=== PATIENT | female | born 1950 | race Caucasian/White ===

== ENCOUNTER 2022-08-11 06:54 | Day surgery (SDC) | payer MEDICARE, SELFPAY ==
[2022-07-16 09:16] VITALS: BMI 38.7
--- NOTE | 2022-08-08 09:05 | MHC.SHP ---
Pre-Procedural Eval Section A Date of Service: 08/08/22 The patient is an INPATIENT: No Changes since office visit: No Cold of Flu in the past 2 weeks, No New Medical Problems, No Changes in Medication and No Patient answered all questions The History & Physical has been completed within 30 days and I have reviewed it.: Yes Section B Chief Complaint: cataract Allergies: Allergies Allergy/AdvReac Type Severity Reaction Status Date / Time methotrexate AdvReac elevated Verified 07/16/22 09:09 LFT Sulfa (Sulfonamide AdvReac elevated Verified 07/16/22 09:09 Antibiotics) LFT Plan Diagnosis/Plan: Unchanged I have reviewed the history and physical and performed a pertinent physical examination on my patient. No changes have occurred unless specified.
--- NOTE | 2022-08-08 09:47 | P.CONAN_ITS ---
Documented by User: Renata Gibson NP 08/08/22 09:48 HPI - Anesthesia Eval Consult details Narrative: 72yo F for Right Cataract Extraction IOL Insertion PCP cleared No previous cataract on record [facility] Past Medical History Medical History (Updated 08/05/22 @ 16:15 by Zainab Calhoun, RN) Anemia Arthritis Bilateral cataracts Cardiomyopathy CKD (chronic kidney disease) Fatty liver GERD (gastroesophageal reflux disease) History of palpitations HTN (hypertension) Hx of atrial flutter Hx of cholelithiasis Hypercholesteremia Hypothyroid LBBB (left bundle branch block) Osteoarthritis Personal history of COVID-19 Rheumatoid arthritis Varicose vein of leg Surgical History Surgical History (Updated 08/05/22 @ 16:16 by Zainab Calhoun, CHAVO) History of ankle surgery History of liver biopsy Hx of colonoscopy Hx of dilation and curettage Hx of tonsillectomy Social History Social History Are you a primary interior plant caretaker to a significant other at home: No Do you presently have visiting nurse or other home services: No Patient Tobacco Use Status: Former Tobacco user Quit Date: 1989 Tobacco use type: Cigarette Use of substances other than those prescribed or required for medical reasons: No Have you been hit, kicked, punched, or otherwise hurt by someone within the past year? If so, by whom?: No Are you DNR?: No Advance Directives: No Advance Directives Information Provided: Yes Advance Directives on File: No Recently lost weight without trying: No Meds Allergies Allergy/AdvReac Type Severity Reaction Status Date / Time methotrexate AdvReac elevated Verified 07/16/22 09:09 LFT Sulfa (Sulfonamide AdvReac elevated Verified 07/16/22 09:09 Antibiotics) LFT Home Medications Medication Instructions Recorded Confirmed Last Taken Type Enbrel QWEEK 07/16/22 Unknown History cholecalciferol (vitamin D3) 25 25 mcg PO DAILY 07/16/22 07/16/22 Unknown History mcg (1,000 unit) capsule (Vitamin D3) famotidine 20 mg tablet 1 tab PO BID 07/16/22 07/16/22 08/11/22 History levothyroxine 137 mcg tablet 1 tab PO DAILY 07/16/22 07/16/22 08/11/22 History lisinopril 5 mg tablet 1 tab PO DAILY 07/16/22 07/16/22 Unknown History magnesium 250 mg tablet 250 mg PO Q OTHER DAY 07/16/22 07/16/22 Unknown History metoprolol succinate 50 mg 1 tab PO DAILY 07/16/22 07/16/22 Unknown History tablet,extended release 24 hr multivitamin 1 tab PO DAILY 07/16/22 07/16/22 Unknown History vitamin B complex 1 tab PO DAILY 07/16/22 07/16/22 Unknown History Exam Exam Date and Time: August 08, 2022 0947 Height,Weight and Vital Signs: Height 5 ft 6 in Weight 108.862 kg Assessment and Plan Assessment Anesthesia Assessment: Chart Reviewed Documented by User: Yaa Lau MD 08/11/22 08:02 [facility] Past Medical History Medical History (Updated 08/05/22 @ 16:15 by Zainab Calhoun, CHAVO) Anemia Arthritis Bilateral cataracts Cardiomyopathy CKD (chronic kidney disease) Fatty liver GERD (gastroesophageal reflux disease) History of palpitations HTN (hypertension) Hx of atrial flutter Hx of cholelithiasis Hypercholesteremia Hypothyroid LBBB (left bundle branch block) Osteoarthritis Personal history of COVID-19 Rheumatoid arthritis Varicose vein of leg Family History Family history of problems with anesthesia: No Surgical History Surgical History (Updated 08/05/22 @ 16:16 by Zainab Calhoun RN) History of ankle surgery History of liver biopsy Hx of colonoscopy Hx of dilation and curettage Hx of tonsillectomy History of Problems with Anesthesia: No Social History Social History Are you a primary interior plant caretaker to a significant other at home: No Do you presently have visiting nurse or other home services: No Patient Tobacco Use Status: Former Tobacco user Quit Date: 1989 Tobacco use type: Cigarette Use of substances other than those prescribed or required for medical reasons: No Have you been hit, kicked, punched, or otherwise hurt by someone within the past year? If so, by whom?: No Are you DNR?: No Advance Directives: No Advance Directives Information Provided: Yes Advance Directives on File: No Recently lost weight without trying: No Meds Allergies Allergy/AdvReac Type Severity Reaction Status Date / Time methotrexate AdvReac elevated Verified 07/16/22 09:09 LFT Sulfa (Sulfonamide AdvReac elevated Verified 07/16/22 09:09 Antibiotics) LFT Home Medications Medication Instructions Recorded Confirmed Last Taken Type Enbrel QWEEK 07/16/22 Unknown History cholecalciferol (vitamin D3) 25 25 mcg PO DAILY 07/16/22 07/16/22 Unknown History mcg (1,000 unit) capsule (Vitamin D3) famotidine 20 mg tablet 1 tab PO BID 07/16/22 07/16/22 08/11/22 History levothyroxine 137 mcg tablet 1 tab PO DAILY 07/16/22 07/16/22 08/11/22 History lisinopril 5 mg tablet 1 tab PO DAILY 07/16/22 07/16/22 Unknown History magnesium 250 mg tablet 250 mg PO Q OTHER DAY 07/16/22 07/16/22 Unknown History metoprolol succinate 50 mg 1 tab PO DAILY 07/16/22 07/16/22 Unknown History tablet,extended release 24 hr multivitamin 1 tab PO DAILY 07/16/22 07/16/22 Unknown History vitamin B complex 1 tab PO DAILY 07/16/22 07/16/22 Unknown History Exam Height,Weight and Vital Signs: Height 5 ft 6 in Weight 108.862 kg Vital Signs Temp Pulse Resp BP Pulse Ox O2 Del Method 08/11/22 07:36 96.9 F 62 18 169/50 H 98 Room Air Airway Mallampati Class: II TM Dist: >3cm Neck ROM: Full Loose/Missing/Broken Teeth: Yes (Some missing-extractions) Heart: RRR Lungs: CTAB Assessment and Plan Assessment Anesthesia Assessment: Anesthesia Plan Discussed Final Anesthetic Review Family History of Problems with Anesthesia: No History of Problems with Anesthesia: No NPO: Yes ASA Class: III Final Preanesthetic Review: No Changes in Pt Med Stat, Meds/Allgs Chart Reviewed, Consent Obtained/Reviewed and Anes Risks/Benef Reviewed Patient Risk: Intermediate Procedure Risk: Low Assessment/Block/Sedation in SS: Assess/Block/Sedation-SS Anesthetic Plan Anesthetic Plan: MAC: Disposition: Standard PACU
[2022-08-11 07:36] VITALS: BP 169/50; PULSE 62; RESP 18; TEMP 36.1; O2SAT 98
[2022-08-11] MEDS: Tetracaine HCl/PF 0.5% Oph Sol 4 ML DROPS 1 DROP EYE-RIGHT (07:50)
[2022-08-11] MEDS: Tropicamide 1 % Ophth Sol 3 ML BTL 1 DROP EYE-RIGHT ×3 (07:50→07:52)
[2022-08-11] MEDS: Cyclopentolate 1 % Ophth Sol 2 ML DRPBTL 1 DROP EYE-RIGHT ×3 (07:50→07:52)
[2022-08-11] MEDS: Lactated Ringers 500 ML 50 ML IV (07:50)
[2022-08-11] MEDS: Phenylephrine HCL 2.5% Oph SoL 2 ML BOTTLE 1 DROP EYE-RIGHT ×3 (07:51→07:52)
--- NOTE | 2022-08-11 08:44 | HO.PNOPHT ---
Ophthalmology Procedure Procedure Date of Service: 08/11/22 Ophthalmology Viscoelastic: Nika Saunderst Dual Pack Pro Ophthalmology Lenses: TECAUSTEN [id number] (22) Procedure Notes: PREOPERATIVE DIAGNOSIS: Decreased visual acuity right eye secondary to cataract POSTOPERATIVE DIAGNOSIS: Same PROCEDURE: Right cataract extraction with intraocular lens insertion SURGEON: Nicolas Piedra M.D. ANESTHESIA: Topical/MAC ESTIMATED BLOOD LOSS: None COMPLICATIONS: None After obtaining informed consent, the patient was brought to the operating room suite and placed in the supine position. After adequate sedation per anesthesia, topical drops of Tetracaine were given to the right eye. The eye was then prepped and draped in the usual sterile fashion. The operating room microscope was then positioned over the operative eye and a lid speculum placed. A paracentesis was created. Viscoelastic was then instilled into the anterior chamber. A three plane incision was then created temporally, utilizing a 2.85 mm keratome. Capsulotomy forceps were then utilized to create a circular tear capsulotomy. Hydrodissection and hydrodelineation were carried out until adequate mobilization of the nucleus occurred. Phacoemulsification was then utilized to remove the dense central nucleus followed by removal of the cortical material utilizing the automated aspiration irrigation unit. Viscoelastic was instilled into the posterior capsular bag followed by placement of a posterior chamber intraocular lens without difficulty. The residual Viscoelastic was then removed utilizing the automated IA machine. The wound was checked and found to be watertight. The patient tolerated the procedure well and the lid speculum was removed. Intracameral injection of Vigamox 0.1 mL followed by a subtenon injection of Kenalog-40 0.2 mL were administered. The patient will be seen in the a.m.
[2022-08-11 09:05] VITALS: BP 149/61; PULSE 60; RESP 18; TEMP 36.3; O2SAT 99
== END 2022-08-11 09:18 | disposition home or self-care (01) ==
PROVIDERS: Visit Provider Ophthalmology
PROC: (CPT 66985; principal; 2022-08-11 08:50)
DX: H25.11 Age-related nuclear cataract, right eye (principal); H52.4 Presbyopia; Z83.511 Family history of glaucoma; D31.32 Benign neoplasm of left choroid; I12.9 Hypertensive chronic kidney disease with stage 1 through stage 4 chronic kidney disease, or unspecified chronic kidney disease; N18.9 Chronic kidney disease, unspecified; K76.0 Fatty (change of) liver, not elsewhere classified; I42.9 Cardiomyopathy, unspecified; E03.9 Hypothyroidism, unspecified; D64.9 Anemia, unspecified; Z79.899 Other long term (current) drug therapy; Z88.2 Allergy status to sulfonamides; Z88.8 Allergy status to other drugs, medicaments and biological substances; Z87.891 Personal history of nicotine dependence
CPT/HCPCS: 66984; J2250; J3010; J3300; V2632

== ENCOUNTER 2022-08-25 07:31 | Day surgery (SDC) | payer MEDICARE, SELFPAY ==
[2022-07-16 09:21] VITALS: BMI 38.7
--- NOTE | 2022-08-21 15:21 | MHC.SHP ---
Pre-Procedural Eval Section A Date of Service: 08/21/22 The patient is an INPATIENT: No Changes since office visit: No Cold of Flu in the past 2 weeks, No New Medical Problems, No Changes in Medication and No Patient answered all questions The History & Physical has been completed within 30 days and I have reviewed it.: Yes Section B Chief Complaint: cataract Allergies: Allergies Allergy/AdvReac Type Severity Reaction Status Date / Time methotrexate AdvReac elevated Verified 07/16/22 09:09 LFT Sulfa (Sulfonamide AdvReac elevated Verified 07/16/22 09:09 Antibiotics) LFT Plan Diagnosis/Plan: Unchanged I have reviewed the history and physical and performed a pertinent physical examination on my patient. No changes have occurred unless specified.
--- NOTE | 2022-08-22 08:33 | HO.ANESPROP2 ---
Documented by User: Renata Gibson NP 08/22/22 08:37 HPI - Anesthesia Eval Consult details Narrative: 72yo F for Left Cataract Extraction IOL Insertion PCP cleared Right eye 08/11/22 with MAC: Fent 50, Midaz 1 PMFSH Past Medical History Medical History Anemia Arthritis Bilateral cataracts Cardiomyopathy CKD (chronic kidney disease) Fatty liver GERD (gastroesophageal reflux disease) History of palpitations HTN (hypertension) Hx of atrial flutter Hx of cholelithiasis Hypercholesteremia Hypothyroid LBBB (left bundle branch block) Osteoarthritis Personal history of COVID-19 Rheumatoid arthritis Varicose vein of leg Family History Family history of problems with anesthesia: No Surgical History Surgical History History of ankle surgery History of liver biopsy Hx of colonoscopy Hx of dilation and curettage Hx of tonsillectomy History of Problems with Anesthesia: No Social History Social History Are you a primary memory care program director to a significant other at home: No Do you presently have visiting nurse or other home services: No Patient Tobacco Use Status: Former Tobacco user Quit Date: 1989 Tobacco use type: Cigarette Use of substances other than those prescribed or required for medical reasons: No Have you been hit, kicked, punched, or otherwise hurt by someone within the past year? If so, by whom?: No Are you DNR?: No Advance Directives: No Advance Directives Information Provided: Yes Advance Directives on File: No Recently lost weight without trying: No Meds Allergies Allergy/AdvReac Type Severity Reaction Status Date / Time methotrexate AdvReac elevated Verified 08/25/22 08:38 LFT Sulfa (Sulfonamide AdvReac elevated Verified 08/25/22 08:38 Antibiotics) LFT Home Medications Medication Instructions Recorded Confirmed Last Taken Type Enbrel QWEEK 07/16/22 Unknown History cholecalciferol (vitamin D3) 25 25 mcg PO DAILY 07/16/22 08/25/22 Unknown History mcg (1,000 unit) capsule (Vitamin D3) famotidine 20 mg tablet 1 tab PO BID 07/16/22 08/25/22 08/25/22 History levothyroxine 137 mcg tablet 1 tab PO DAILY 07/16/22 08/25/22 08/11/22 History lisinopril 5 mg tablet 1 tab PO DAILY 07/16/22 08/25/22 Unknown History magnesium 250 mg tablet 250 mg PO Q OTHER DAY 07/16/22 08/25/22 Unknown History metoprolol succinate 50 mg 1 tab PO DAILY 07/16/22 08/25/22 Unknown History tablet,extended release 24 hr multivitamin 1 tab PO DAILY 07/16/22 08/25/22 Unknown History vitamin B complex 1 tab PO DAILY 07/16/22 08/25/22 Unknown History Exam Exam Date and Time: August 22, 2022 0833 Height,Weight and Vital Signs: Height 5 ft 6 in Weight 108.862 kg Assessment and Plan Assessment Anesthesia Assessment: Chart Reviewed Final Anesthetic Review Family History of Problems with Anesthesia: No History of Problems with Anesthesia: No Documented by User: Ck Almonte MD 08/25/22 08:56 [facility] Past Medical History Medical History Anemia Arthritis Bilateral cataracts Cardiomyopathy CKD (chronic kidney disease) Fatty liver GERD (gastroesophageal reflux disease) History of palpitations HTN (hypertension) Hx of atrial flutter Hx of cholelithiasis Hypercholesteremia Hypothyroid LBBB (left bundle branch block) Osteoarthritis Personal history of COVID-19 Rheumatoid arthritis Varicose vein of leg Surgical History Surgical History History of ankle surgery History of liver biopsy Hx of colonoscopy Hx of dilation and curettage Hx of tonsillectomy Social History Social History Are you a primary memory care program director to a significant other at home: No Do you presently have visiting nurse or other home services: No Patient Tobacco Use Status: Former Tobacco user Quit Date: 1989 Tobacco use type: Cigarette Use of substances other than those prescribed or required for medical reasons: No Have you been hit, kicked, punched, or otherwise hurt by someone within the past year? If so, by whom?: No Are you DNR?: No Advance Directives: No Advance Directives Information Provided: Yes Advance Directives on File: No Recently lost weight without trying: No Meds Allergies Allergy/AdvReac Type Severity Reaction Status Date / Time methotrexate AdvReac elevated Verified 08/25/22 08:38 LFT Sulfa (Sulfonamide AdvReac elevated Verified 08/25/22 08:38 Antibiotics) LFT Home Medications Medication Instructions Recorded Confirmed Last Taken Type Enbrel QWEEK 07/16/22 Unknown History cholecalciferol (vitamin D3) 25 25 mcg PO DAILY 07/16/22 08/25/22 Unknown History mcg (1,000 unit) capsule (Vitamin D3) famotidine 20 mg tablet 1 tab PO BID 07/16/22 08/25/22 08/25/22 History levothyroxine 137 mcg tablet 1 tab PO DAILY 07/16/22 08/25/22 08/11/22 History lisinopril 5 mg tablet 1 tab PO DAILY 07/16/22 08/25/22 Unknown History magnesium 250 mg tablet 250 mg PO Q OTHER DAY 07/16/22 08/25/22 Unknown History metoprolol succinate 50 mg 1 tab PO DAILY 07/16/22 08/25/22 Unknown History tablet,extended release 24 hr multivitamin 1 tab PO DAILY 07/16/22 08/25/22 Unknown History vitamin B complex 1 tab PO DAILY 07/16/22 08/25/22 Unknown History Exam Airway Mallampati Class: II TM Dist: >3cm Neck ROM: Full Loose/Missing/Broken Teeth: Yes (missing teeth upper and lower globally, poor dentition) Heart: [id number] Lungs: cta b/l Assessment and Plan Assessment Anesthesia Assessment: Anesthesia Plan Discussed Final Anesthetic Review NPO: Yes ASA Class: III Final Preanesthetic Review: No Changes in Pt Med Stat, Meds/Allgs Chart Reviewed, Consent Obtained/Reviewed and Anes Risks/Benef Reviewed Patient Risk: Intermediate Procedure Risk: Low Assessment/Block/Sedation in SS: Assess/Block/Sedation-SS Anesthetic Plan Anesthetic Plan: MAC: and Agree w/ Assess. and Plan Disposition: Standard PACU
[2022-08-25] MEDS: Tetracaine HCl/PF 0.5% Oph Sol 4 ML DROPS 1 DROP EYE-LEFT (08:16)
[2022-08-25] MEDS: Cyclopentolate 1 % Ophth Sol 2 ML DRPBTL 1 DROP EYE-LEFT ×3 (08:17→08:34)
[2022-08-25] MEDS: Ketorolac Tromethamine 0.5% Op 5 ML DROPS 1 DROP EYE-LEFT ×3 (08:17→08:30)
[2022-08-25] MEDS: Phenylephrine HCL 2.5% Oph SoL 2 ML BOTTLE 1 DROP EYE-LEFT ×3 (08:17→08:29)
[2022-08-25] MEDS: Lactated Ringers 500 ML 50 ML IV (08:18)
[2022-08-25 08:28] VITALS: BP 131/60; PULSE 68; RESP 18; TEMP 36.6; O2SAT 95
[2022-08-25] MEDS: Tropicamide 1 % Ophth Sol 3 ML BTL 1 DROP EYE-LEFT ×3 (08:30→08:35)
--- NOTE | 2022-08-25 09:08 | HO.PNOPHT ---
Ophthalmology Procedure Procedure Date of Service: 08/25/22 Ophthalmology Viscoelastic: [employer]et[employer] Saunderst Dual Pack Pro Ophthalmology Lenses: TECAUSTEN [id number] (22) Procedure Notes: PREOPERATIVE DIAGNOSIS: Decreased visual acuity left eye secondary to cataract POSTOPERATIVE DIAGNOSIS: Same PROCEDURE: Left cataract extraction with intraocular lens insertion SURGEON: Nicolas Piedra M.D. ANESTHESIA: Topical/MAC ESTIMATED BLOOD LOSS: None COMPLICATIONS: None After obtaining informed consent, the patient was brought to the operation room suite and placed in the supine position. After adequate sedation per anesthesia, topical drops of Tetracaine were given to the left eye. The eye was then prepped and draped in the usual sterile fashion. The operating room microscope was then positioned over the operative eye and a lid speculum placed. A paracentesis was created. Viscoelastic was then instilled into the anterior chamber. A three plane incision was then created temporally, utilizing a 2.85 mm keratome. Capsulotomy forceps were then utilized to create a circular tear capsulotomy. Hydrodissection and hydrodelineation were carried out until adequate mobilization of the nucleus occurred. Phacoemulsification was then utilized to remove the dense central nucleus followed by removal of the cortical material utilizing the automated aspiration irrigation unit. Viscoat elastic was instilled into the posterior capsular bag followed by placement of a posterior chamber intraocular lens without difficulty. The residual Viscoat elastic was then removed utilizing the automated IA machine. The wound was check and found to be watertight. The patient tolerated the procedure well and the lid speculum was removed. Intracameral injection of Vigamox 0.1 mL followed by a subtenon injection of Kenalog-40 0.2 mL were administered. The patient will be seen in the a.m.
[2022-08-25 09:39] VITALS: BP 154/61; PULSE 59; RESP 16; TEMP 36.3; O2SAT 99
== END 2022-08-25 09:43 | disposition home or self-care (01) ==
LOC: HO.SSS 07:31
PROVIDERS: Visit Provider Ophthalmology
PROC: (CPT 66985; principal; 2022-08-25 09:10)
DX: H25.12 Age-related nuclear cataract, left eye (principal); H52.4 Presbyopia; D31.32 Benign neoplasm of left choroid; E03.9 Hypothyroidism, unspecified; I12.9 Hypertensive chronic kidney disease with stage 1 through stage 4 chronic kidney disease, or unspecified chronic kidney disease; N18.9 Chronic kidney disease, unspecified; I42.9 Cardiomyopathy, unspecified; Z79.899 Other long term (current) drug therapy; Z88.2 Allergy status to sulfonamides; Z87.891 Personal history of nicotine dependence; Z86.16 Personal history of COVID-19; Z88.8 Allergy status to other drugs, medicaments and biological substances
CPT/HCPCS: 66984; J2250; J3300; V2632